=== PATIENT | male | born 1950 ===

== ENCOUNTER 2016-11-20 10:27 | Emergency (ER) | payer OTHER ==
[~2016-11-20] VITALS: Ht 175.3 cm; Wt 90.7 kg
[2016-11-20 10:39] VITALS: BP 161/100
[2016-11-20] MEDS ORDERED: ASPIRIN EC81 M1 PO (10:59)
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
--- NOTE | 2016-11-20 13:03 | RADIOLOGY REPORT ---
EXAMINATION: XR CHEST CLINICAL INFORMATION: Chest pain. Sternal contusion. COMPARISON: None TECHNIQUE: 2 views of the chest were obtained. FINDINGS: The trachea is in normal anatomic position. The cardiac silhouette is normal in size. There is mild calcification of the aortic knob. The lungs are clear. No pleural effusion. No pneumothorax. There are degenerative changes throughout the thoracic spine. There is no displaced rib fracture. IMPRESSION: No focal consolidation, pneumothorax or pleural effusion.
[2016-11-20] MEDS ORDERED: IBUPROFEN800 M1 PO (13:16)
[2016-11-20] MEDS ORDERED: CYCLOBENZAPRINE5 M2 PO (13:16)
== END 2016-11-20 13:33 ==
LOC: ERH 10:27
DX: R07.89 Other chest pain (principal); R42 Dizziness and giddiness; M54.2 Cervicalgia; V49.40XA Driver injured in collision with unspecified motor vehicles in traffic accident, initial encounter
CPT/HCPCS: 93005; 93010; 96372; J1885